=== PATIENT | female | born 1935 | race Caucasian/White ===

== ENCOUNTER 2016-05-04 07:24 | Day surgery (SDC) | payer OTHER ==
[2016-04-28 18:22] VITALS: BMI 25.7
[2016-05-04] MEDS ORDERED: COCAINE HCL 4% TOPICAL SOLUTION 4 ML BOTTLE TP ONE (08:55)
[2016-05-04] MEDS ORDERED: OXYMETAZOLINE 0.05% NASAL SOLUTION 15 ML BOTTLE NS ONE (08:55)
[2016-05-04] MEDS ORDERED: ACETAMINOPHEN 500 MG TABLET (FP) PO PRN (09:17)
[2016-05-04] MEDS ORDERED: ceFAZolin SODIUM 1 GM VIAL ONE (09:31)
[2016-05-04] MEDS ORDERED: PROPOFOL 20 ML ONE ×4 (09:45→10:31)
[2016-05-04] MEDS ORDERED: ePHEDrine SULFATE 50 MG/1 ML AMPULE ONE (10:31)
[2016-05-04] MEDS ORDERED: ONDANSETRON 4 MG/2 ML VIAL ONE (10:36)
[2016-05-04] MEDS ORDERED: LACTATED RINGERS SOLUTION 1,000 ML IV SCH (11:00)
[2016-05-04] MEDS ORDERED: ONDANSETRON 4 MG/2 ML VIAL IVPUSH PRN (11:24)
[2016-05-04] MEDS ORDERED: oxyCODONE HCL 5 MG TABLET PO PRN (11:26)
[2016-05-04 11:56] VITALS: TEMP 98.3
[2016-05-04] MEDS ORDERED: ACETAMINOPHEN 500 MG TABLET (FP) ONE (12:42)
[2016-05-04 13:16] VITALS: BP 156/60; PULSE 59
--- NOTE | 2016-05-05 14:34 | OP ---
DATE OF OPERATION: 05/04/2016 PREOPERATIVE DIAGNOSIS: Nasolacrimal obstruction with epiphora, right. POSTOPERATIVE DIAGNOSIS: Nasolacrimal obstruction with epiphora, right. PROCEDURE: 1. Dacryocystorhinostomy, right. 2. Silicone intubation, right lacrimal system. 3. Lacrimal sac biopsy. 4. Partial ethmoidectomy. 5. Endoscopy. SURGEON: Jm Wilcox MD ANESTHESIA: Local with sedation. COMPLICATIONS: None. ESTIMATED BLOOD LOSS: 10-20 mL. OPERATIVE REPORT: Patient brought to the operating room and placed on the operating room table. Vital signs monitored by Anesthesia. Tetracaine was placed in both eyes. The lid was marked and the tear trough on the right side. The patient was given intravenous sedation with the administration of 2% Xylocaine and 1:100,000 epinephrine. Then, 0.5% Marcaine was injected in the tear trough down to the intralacrimal crest. Nasal of the upper and lower lid, lateral wall of the nose dorsally and laterally for a total of 5 mL. In addition, under gross visualization, the external nares and the middle meatus were injected with 2% xylocaine and 1:100,000 epinephrine for a total of 3-4 mL, and the right nostril was packed with cottonoids moistened with Afrin. The patient was prepped and draped in usual fashion, exposing both eyes. The previously marked tear trough incision was now incised with a 15 blade through the skin and subcutaneous tissue. Spreading with a Cornejo scissor was carried down to the anterior lacrimal crest. The anterior limb of the medial canthal tendon was identified. The periosteum and the anterior limb of the medial canthal tendon were incised with a Isanti needle, and the periosteum was reflected laterally, exposing the sac fossa. The lacrimal sac fossa was packed with cottonoids moistened with thrombin, and then, once hemostasis was achieved, the posterior sac fossa was penetrated with a curved hemostat. Upbiting Kerrison rongeurs were used to create an osteotomy centered on the inferior lacrimal crest, extending from the medial canthal tendon to the nasolacrimal duct. A partial ethmoidectomy was performed with Kerrisons at this time. There were some low-lying cells which encroached on the ostium. The upper and lower puncta were dilated with Mclain probes and then the medial wall of the sac was opened with Cindy scissors, creating an anterior and posterior lacrimal sac flap. The posterior lacrimal sac flap was biopsied. There were no masses or stones noted. The anterior lacrimal sac flap was secured with a 4-0 chromic. Antibiotic irrigation was used at this point and suctioned. The internal canaliculus was examined, seen to be open, and it was well away from the bone above it. Therefore, the posterior flap was looped posteriorly. The anterior sac flap was secured with 4-0 chromic, which was sutured to the periosteum anterior to the osteotomy with this mattress 4-0 chromic and then 2 additional interrupted 4-0 chromics were used to complete the internal visualization of the sac. The subcuticular tissues were closed with 5-0 chromic, 2 sutures, and the skin was closed with a running 6-0 plain suture in technique. The stents were removed from the probes. The stents were tied with locking knot and secured to the right external naris with a single 6-0 Prolene suture with minimal tension on the loop in the right medial canthus. Bacitracin was placed on the sutures. Endoscope was introduced and was examined. Suction was carried out to ensure hemostasis and the correct positioning of the tubes with clearance from the septum. Afrin was sprayed in the nose and the patient was taken to recovery room in stable condition. JM WILCOX M.D. [id number]
--- NOTE | 2016-05-06 11:42 | PATH ---
Surgical Pathology Report Patient Name: ALINE HARTMAN Med. Rec. #: [id number] /Age/Gender: 1935 (Age: 80) / F Account: [id number] Location: [facility] AMBULATORY Taken: 05/04/2016 Received: 05/04/2016 Reported: 05/06/2016 Physicians: Willie Stanley Specimen(s) Received RIGHT LACRIMAL SAC BX Clinical History Nasal lacrimal obstruction Final Diagnosis RIGHT LACRIMAL SAC, BIOPSY: BENIGN GLANDULAR MUCOSA CONSISTENT WITH PORTION OF LACRIMAL SAC, WITH ASSOCIATED CHRONIC INFLAMMATION. Electronically Signed Ernie Cherry M.D. Gross Description Received in formalin, labeled "right lacrimal sac biopsy" is a mina, irregular portion of soft tissue measuring 0.2 cm. in greatest dimension. The specimen is submitted in toto in one cassette. 05/05/201605/05/2016
== END 2016-05-04 13:15 | disposition home or self-care (01) ==
LOC: FASU 07:24
PROVIDERS: ATTEND Ophthalmology
PROC: 09BU0ZZ Excision of Right Ethmoid Sinus, Open Approach (ICD-10-PCS; 2016-05-04)
PROC: 08BX0ZX Excision of Right Lacrimal Duct, Open Approach, Diagnostic (ICD-10-PCS; 2016-05-04)
PROC: 0WJ Anatomical Regions, General, Inspection (ICD-10-PCS; 2016-05-04)
PROC: 081X0Z3 Bypass Right Lacrimal Duct to Nasal Cavity, Open Approach (ICD-10-PCS; principal; 2016-05-04 09:45)
DX: H04.551 Acquired stenosis of right nasolacrimal duct (principal); H04.201 Unspecified epiphora, right side
CPT/HCPCS: 88304-TC; 94760